=== PATIENT | female | born 1965 | race Caucasian/White ===

== ENCOUNTER 2024-07-08 12:40 | Outpatient (CLI) | payer MEDICARE, MEDICAID, SELFPAY ==
[2024-07-08 13:28] LABS: Creatinine Urine 91.1 mg/dL; Total Protein Urine Random 6 mg/dL; Ur Ttl Prot Creatinine Ratio 0.07 mg/mg (0-0.20)
[2024-07-08 13:43] LABS: Albumin Level 3.9 g/dL (3.5-5.1); Anion Gap 6 mmol/L (4-12); Blood Urea Nitrogen 23 mg/dL (7-17); Calcium 8.9 mg/dL (8.4-10.2); Carbon Dioxide 27 mmol/L (22-30); Chloride 105 mmol/L (98-107); Estimated Glomerular Filt Rate 51; Glucose 93 mg/dL (65-110); Phosphorus 3.5 mg/dL (2.5-4.5); Potassium 4.2 mmol/L (3.4-5.0); Sodium 138 mmol/L (137-145)
[2024-07-08 13:49] LABS: Complement C3 135 mg/dL (88-165)
[2024-07-10 03:34] LABS: Creatinine, Random Urine 95 mg/dL (20-275); Total Prot/Creat ratio mg/mg 0.147 (0.024-0.184); Total Protein/Creatinine Ratio 147 mg/g creat (24-184)
[2024-07-12 14:42] LABS: ANCA Screen NEGATIVE (NEGATIVE); Anti Glomerular Basement Memb <1.0 AI
[2024-07-14 10:53] LABS: Protein, Total 6.2 g/dL (6.1-8.1)
== END 2024-07-08 12:41 | disposition home or self-care (01) ==
LOC: ANHLAB 12:43
PROVIDERS: PCP Nurse Practitioner Family; Visit Provider Internal Medicine Nephrology
DX: N18.9 Chronic kidney disease, unspecified (principal)
CPT/HCPCS: 36415; 80069; 82570; 83520; 84155; 84156; 84165; 84166; 86036; 86038; 86039; 86160; 86225

== ENCOUNTER 2024-07-18 13:45 | Outpatient (CLI) | payer MEDICARE, MEDICAID, SELFPAY ==
--- NOTE | ~2024-07-18 | US_ITS ---
EXAMINATION: US renal BI DATE: 07/18/2024 15:05 INDICATION: Chronic kidney disease TECHNIQUE: Multiple ultrasound grayscale images of the kidneys were obtained. COMPARISON: None. FINDINGS: The right kidney measures 8.4 x 4.5 x 5.0 cm. The left kidney measures 9.0 x 5.4 x 5.2 cm. The kidney s demonstrate normal echogenicity. There is no hydronephrosis in either kidney. No stones identified . The bladder is normal. IMPRESSION: 1. Normal kidneys without hydronephrosis. Reviewed, dictated and finalized at location A. RITY PATROL OFFICER
== END 2024-07-18 13:46 | disposition home or self-care (01) ==
PROVIDERS: PCP Nurse Practitioner Family; Visit Provider Internal Medicine Nephrology
DX: N18.9 Chronic kidney disease, unspecified (principal)
CPT/HCPCS: 76775

== ENCOUNTER 2025-08-15 09:42 | Outpatient (CLI) | payer MEDICARE, MEDICAID, SELFPAY ==
--- OUTSIDE RECORDS SUMMARY | 2025-08-15 10:04 | XMS_ITS | Clinical Summary ---
Author Organization [facility] Address [address] [place] [id number] Care Team Providers Care Ticket Collector Name Role Phone Jennifer Artis NP Unavailable [phone] Freddie Smith MD Unavailable [phone] Miscellaneous, Not In File Unavailable Unava ilable Marbella Choi MD Primary Care Provider + Allergies No known active allergies Medications clopidogreL (PLAVIX) 75 mg tablet Take 75 mg by mouth daily Active gabapentin (NEURONTIN) 400 mg capsule Take 400 mg by mouth 3 (three) times a day Active buPROPion XL (WELLBUTRIN XL) 300 mg 24 hr tablet Take 600 mg by mouth 2 (two) times a day before breakfast and dinner Active cyclobenzaprine (FLEXERIL) 10 mg tablet Take 10 mg by mouth 2 (two) times a day as needed for muscle spasms Taking 20 mg in AM and 10 mg in PM Active cholecalciferol (VITAMIN D-3) 1,000 unit Take 1,000 Units by mouth Active multivit-mins no.63/iron/foli c (M-VIT ORAL) Take 1 Dose by mouth daily Active aspirin 81 mg chewable tablet Take 1 tablet (81 mg total) by mouth daily 30 tablet 11 0 Active atorvastatin (LIPITOR) 80 mg tablet Take 1 tablet (80 mg total) by mouth daily 30 tablet 11 0 Active metoprolol XL (TOPROL-XL) 25 mg extended release tablet Take 1 tablet (25 mg total) by mouth daily 30 tablet 1 0 Active Active Problems Problem Noted Date Diagnosed Date Atelectasis 12/14/2019 Assessment & Plan (12/15/2019 10:08 AM CDT): Continue aggressive pulmonary toilet Continue diuresis, O2 wean Assessment & Plan (12/14/2019 10:11 AM CDT): CXR showing increased atelectasis with LLL layering effusion, slightly worse. 2L nasal cannula -aggressive pulm hygiene -wean oxygen for sats > 94% -lasix today and aim for net neg 1L FBG Post-operative pain 12/12/2019 Assessment & Plan (12/15/2019 10:05 AM CDT): Offer oral analgesia prn Teach splinting technique Assessment & Plan (12/14/2019 10:08 AM CDT): S/p sternotomy and CT placement. Given ketamine overnight for incisional discomfort per Dr Cain -gabapentin per half home regimen - d/c dilaudid - scheduled Tylenol & PRN Oxy -OOB and ambulate Assessment & Plan (12/13/2019 5:25 PM CDT): S/p sternotomy and CT placement. Patient took Gabapentin preoperatively - begin PRN Dilaudid while intubated - scheduled Tylenol & PRN Oxy after extubation, PRN dilaudid for breakthru pain - resume home Gabapentin at reduced dose today 1700: pt endorsing pain, will give Ketamine 30 mg Assessment & Plan (12/12/2019 3:55 PM CDT): S/p sternotomy and CT placement. Patient takes Gabapentin preoperatively - begin PRN Dilaudid while intubated - transition to scheduled Tylenol & PRN Oxy after extubation - resume home Gabapentin at reduced dose POD 1 History of dental problems 12/11/2019 Assessment & Plan (12/11/2019 11:06 AM CDT): POA Screening panorex 12/09 with results including: Prominent caries of multiple teeth with lucency surrounding the roots of multiple maxillary teeth suggestive of loosening. Will need dental procedures completed after she recuperates from her cardiac surgery (in 4-6 weeks) Essential hypertension 12/09/2019 Assessment & Plan (12/09/2019 1:29 AM CDT): Admission BP 134/94 Takes lisinopril at home - hold in the meri-operative period Added metoprolol for CAD - titrate as tolerated VS Q4 Hyperlipidemia 12/09/2019 Assessment & Plan (12/15/2019 10:06 AM CDT): Continue Atorvastatin Continue low fat diet Class 3 severe obesity in adult 12/09/2019 Assessment & Plan (12/09/2019 12:23 PM CDT): Admission BMI 45.06 May require bariatric equipment post-operatively Fall & safety precautions Coronary artery disease involving andreafski coronar y artery 12/09/2019 Assessment & Plan (12/14/2019 10:04 AM CDT): S/p CABG. With L radial artery donor site, Post-op care to include: -neuro vascular checks to L arm every 8 hours - daily ASA - daily Lipitor and Plavix in AM - bowel regimen - ADAT - SCDs for DVT proph, SQ heparin - OOB and ambulate today Assessment & Plan (12/13/2019 1:02 PM CDT): S/p CABG. With L radial artery donor site, Post-op care to include: -neuro vascular checks to L arm every 2 hours - daily ASA - daily Lipitor and Plavix in AM - provide bowel regimen - ADAT - SCDs for DVT proph, Begin sq Heparin today - meri-op Cefazolin and Vancomycin x24 hrs - PT to begin POD #1 for decreased mobility after surgery, OOB and ambulate today Assessment & Plan (12/12/2019 3:53 PM CDT): S/p CABG. Post-op care to include: - begin Aspirin tonight - begin Lipitor and Plavix in AM - provide bowel regimen - ulcer prophylaxis while intubated - SCDs for DVT proph, sq Heparin in AM - meri-op Cefazolin and Vancomycin x24 hrs - PT to begin POD #1 for decreased mobility after surgery Assessment & Plan (12/15/2019 10:07 AM CDT): See NSTEMI problem S/p CABG Continue ASA, Statin, Lopressor Monitor on telemetry Acute on chronic combined sy stolic (congestive) and diastolic (congestive) heart failure 12/09/2019 Assessment & Plan (12/15/2019 10:08 AM CDT): POA --Echo with findings of: LV cavity size is enlarged. Mild concentric LV hypertrophy. Akinesis of anterior wall and dyskinesis of LV apex; overall moderate segmental reduction in LV Ejection Fraction, LVEF = 35%. Global longitudinal strain (GLS) =- 11.8% (abnormal). LA is normal. Normal RV cavity size and function. Normal Inferior vena cava. Normal aorta. No AR seen, No MR seen, no , no MS, normal TV, normal PV. Diastolic function: Impaired Relaxation. No previous examinations are available for comparison. Cardiac catheterization 12/07 with estimated EF 25-30% Monitor intake and output Daily weights Continue Lasix, Metoprolol-titrate to response Resolved Problems Problem Noted Date Diagnosed Date Resolved Date Cardiogenic postoperative shock 12/13/2019 12/15/2019 Overview (12/14/2019): Intra-op KINZA with findings of nomal BiV function, no evidence of dissection, improved strain pattern with improved global wall motion on 0.04 mcg/kg/min Epinephrine Assessment & Plan (12/14/2019 10:00 AM CDT): S/p CABG, Epi weaned to off overnight, periphery warm and well perfused.. Postprocedural cardiac insufficiency following cardiac surgery - lasix IV today and then begin lasix PO daily -begin metoprolol 6.25 mg po BID today Assessment & Plan (12/13/2019 1:10 PM CDT): S/p CABG, on Epi at 0.03 this morning. Wean initiated overnight with CI > 3. Intra-op KINZA with findings of nomal BiV function, no evidence of dissection, improved strain pattern with improved global wall motion on 0.04 mcg/kg/min Epinephrine. Postprocedural cardiac insufficiency following cardiac surgery -obtain ScVO2 now -continue to wean Epi Q 6 hours for ScVO2 > 60 -begin beta andrzej once off Epi -lasix today and aim for net neg 1L FBG Acute blood loss anemia 12/12/201911/23 Assessment & Plan (12/12/2019 1:21 PM CDT): Expected following cardiac surgery. H&H stable. No pressors. - No indication for transfusion, consider if patient becomes hemodynamically unstable with increased pressor requirements or hgb < 8 and symptomatic - CBC daily Acute respiratory failure 12/12/2019 Assessment & Plan (12/12/2019 3:51 PM CDT): Post procedural short-term ventilator support with anticipated extubation. Difficulty w/ oxygenation remedied by changing to SIMV and increased Peep/ fiO2. - plan for spontaneous breathing trial with goal of extubation - VAP prophylaxis/ pulmonary hygiene - encourage IS and Acapella Cardiogenic shock 12/12/2019 12/14/2019 Assessment & Plan (12/12/2019 3:49 PM CDT): Hemodynamically supported w/ Epinephrine 0.04mcg/kg/min and Norepi infusions. DDD paced at 90, NSR underlying. Initial CI ~2.8 - plan to begin Epi wean later in evening following extubation Pre-procedure KINZA exam summary: Moderately dilated RV/LV with LVEF 35-40%, mildly reduced RV function NAVNEET without visualized clot, velocities do not preclude clot formation. Interatrial septal pouching with no PFO per bubble study Grade 1 diastolic dysfunction (E/A: 1.2, TR jet <2.8, E/e' 9.3, LA area <34) Normal caliber aorta without evidence of dissection Postprocedure (follow-up) KINZA exam comments: Status post 2 vessel CABG with WU, L radial. Exam performed on 0.04 mcg/kg/min Epinephrine. Normal biventricular function No evidence of aortic dissection Improved strain pattern with improved global wall motion. Hyperglycemia 12/12/2019 12/15/2019 Assessment & Plan (12/13/2019 1:03 PM CDT): Hgb A1C 5.7, preoperative. Insulin infusion required for glycemic control in the immediate post-op period, titrated to off overnight - transition to SSI, - begin CHO restricted diet Assessment & Plan (12/12/2019 3:58 PM CDT): Hgb A1C 5.7, preoperative. Insulin infusion required for glycemic control in the immediate post-op period. - transition to SSI, likely POD 1 when tolerating po diet Pneumothorax 12/12/2019 12/15/2019 Assessment & Plan (12/13/2019 1:04 PM CDT): Moderate sized right pneumothorax post-op, R PCT placed - CXR today with resolution of Pneumothorax NSTEMI (non-ST elevated myoc ardial infarction) 12/09/2019 12/12/2019 Assessment & Plan (12/10/2019 11:13 AM CDT): Presented to OSH 12/07 after several hours of chest pain with PMH = History of CAD s/p 2 stents in 2018 - takes plavix at home Ongoing telemetry with q 4 hr VS Underwent cardiac catheterization - has 90% left main occlusion along with multiple CAD Continues on heparin and nitroglycerin gtts Continue aspirin, statin, and BB--no priyank related to pre-op Renal protection Last plavix dose 12/07 Troponins are down-trending, have discontinued collecting these Still denies chest pain, nausea, or jaw discomfort Planned bypass on December 11 Systolic dysfunction 12/09/2019 020 Coronary artery disease invo lving andreafski coronary artery 12/08/2019 12/09/2019 Overview (12/09/2019): Added automatically from request for surgery [id number] Surgical History Surgery Date Site/Laterality Comments SECTION CARDIAC STENT PLACEMENT CARDIAC CATHETERIZATION Medical History Medical History Date Comments Coronary artery disease Hyperlipidemia Hypertension Coronary artery disease invo lving andreafski coronary artery 12/08/2019 Added automatically from req uest for surgery [id number] Systolic dysfunction 12/09/2019 Depression CHF (congestive heart failure) (HCC) Pneumothorax 12/12/2019 Social History Tobacco Use Types Packs/Day Years Used Date Smoking Tobacco: Former Cigarettes Q uit: 08/24/2017 Smokeless Tobacco: Never Comments:Quit over two years ago per Pt Alcohol Use Standard Drinks/Week Comments Not Currently 0 (1 standard drink = 0.6 oz pur e alcohol) Comments No Sex and Gender Information Value Date Recorded Sex Assigned at Not on file 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 Gender Identity Not on file Sexual Orientation Not on file Last Filed Vital Signs Vital Sign Reading Time Taken Comments Blood Pressure 139/72 05/15/2020 10:11 AM CDT Pulse 72 05/15/2020 10:11 AM CDT Temperature 36.7 C (98 F) 05/15/2020 10:11 AM CDT Respiratory Rate 14 05/15/2020 10:11 AM CDT Oxygen Saturation 96% 12/16/2019 9:22 AM CDT Inhaled Oxygen Concentration - - Weight 129.7 kg (286 lb) 05/15/2020 10:11 AM CDT Height 170.2 cm (5' 7) 05/15/2020 10:11 AM CDT Body Mass Index 44.79 05/15/2020 10:11 AM CDT Plan of Treatment Not on file Insurance [facility] Advance Directives For more information, please contact: [phone] * Full Code (Latest Code Status on File) Date Activated Date Inactivated Comments 12/08/2019 11:45 PM 12/16/2019 3:55 PM Care Teams Ticket Collector Relationship Specialty Start Date End Date Marbella Choi MD [address] [place] [address] [address] PCP - General Family Medicine 05/15/20 Jennifer Artis NP Nurse Practitioner Cardiothoracic Surgery 12/11/19 Freddie Smith MD Surgeon Cardiothoracic Surgery 12/16/19 Miscellaneous, Not In File 12/16/19
--- OUTSIDE RECORDS SUMMARY | 2025-08-15 10:04 | XMS_ITS | Encounter Summary ---
Author Organization [facility] Address [address] [place] [address] Care Team Providers Care Cradle Slide Maker Name Role Phone Unknown, Notinfile Primary Care Provider Unavail able Jennifer Artis NP Unavailable [phone] Freddie Smith MD Unavailable [phone] Miscellaneous, Not In File Unavailable Unava ilable No, Physician Primary Care Provider [phone] Marbella Choi MD Primary Care Provider + Encounter Details Date Type Department Care Team (Late st Contact Info) Description 12/12/2019 Documentation [facility] [address] [place] [address] Nabeel Bazan RN Social History Tobacco Use Types Packs/Day Years Used Date Smoking Tobacco: Former Cigarettes Q uit: 08/24/2017 Smokeless Tobacco: Never Comments:Quit over two years ago per Pt Alcohol Use Standard Drinks/Week Comments Not Currently 0 (1 standard drink = 0.6 oz pur e alcohol) Comments No Sex and Gender Information Value Date Recorded Sex Assigned at Not on file 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 Please call me at [phone] further inquiries. documented in this encounter Plan of Treatment Not on file documented as of this encounter Visit Diagnoses Not on filedocumented in this encounter Care Teams Cradle Slide Maker Relationship Specialty Start Date End Date Unknown, Notinfile PCP - General 12/08/19 12/12/19 No, Physician PCP - General 12/13/19 05/14/20 Marbella Choi MD [address] [place] [address] [address] PCP - General Family Medicine 05/15/20 Jennifer Artis NP Nurse Practitioner Cardiothoracic Surgery 12/11/19 Freddie Smith MD Surgeon Cardiothoracic Surgery 12/16/19 Miscellaneous, Not In File 12/16/19 documented as of this encounter
[2025-08-15 10:35] LABS: Albumin Level 3.9 g/dL (3.5-5.1); Anion Gap 6 mmol/L (4-12); Blood Urea Nitrogen 37 mg/dL (7-17); Calcium 9.3 mg/dL (8.4-10.2); Carbon Dioxide 29 mmol/L (22-30); Chloride 104 mmol/L (98-107); Estimated Glomerular Filt Rate 33; Glucose 95 mg/dL (65-110); Potassium 3.9 mmol/L (3.4-5.0); Sodium 139 mmol/L (137-145)
[2025-08-15 10:48] LABS: Total Protein Urine Random < 5 mg/dL
[2025-08-15 11:31] LABS: Parathyroid Intact 64.5 pg/mL (14.5-75.2)
[2025-08-18 11:26] LABS: Ur Ttl Prot Creatinine Ratio < 0.09 mg/mg (0-0.20)
== END 2025-08-15 09:43 | disposition home or self-care (01) ==
PROVIDERS: PCP Nurse Practitioner Family; Visit Provider Internal Medicine Nephrology
DX: I12.9 Hypertensive chronic kidney disease with stage 1 through stage 4 chronic kidney disease, or unspecified chronic kidney disease (principal); N18.32 Chronic kidney disease, stage 3b; E55.9 Vitamin D deficiency, unspecified; N25.81 Secondary hyperparathyroidism of renal origin
CPT/HCPCS: 36415; 80069; 82306; 82570; 83970; 84156